=== PATIENT | male | born 1985 | race Caucasian/White ===

== ENCOUNTER 2022-09-19 13:04 | Emergency (ER) | payer SELFPAY ==
--- OUTSIDE RECORDS SUMMARY | 2022-09-19 13:07 | XMS REPORT | Continuity of Care Document ---
:1985 Author Organization [facility] t Address [address] [place] [address] [place] [id number] Care Team Providers Name Role Phone Pcp, Patient Does Not Have A Primary Care Physician [phone] Radha Hinojosa MD Attending Clinician RADHA HINOJOSA Attending Clinician Unavailable Doctor Unassigned, [place] Attending Clinician Unavailable GELY CESPEDES Attending Clinician Unavailable Gely Warren Attending Clinician Unknown, Attending Attending Clinician Unavailable Problems Condition Condition Condition Status Onset Resolution Last Treating Co mments Source Name Details Category Date Date Treatment Clinician Date Adult BMI Adult BMI Diagnosis Active C ommon 34.0-34.9 34.0-34.9 Spir it kg/sq m kg/sq m - [facility] HTN HTN Problem Active Common (hypertens (hypertens Sp malissa ion), ion), - [facility] benign benign [facility] Elevated Elevated Diagnosis Active Com mon LFTs LFTs [facility] Mixed Mixed Diagnosis Active Common hyperlipid hyperlipid Sp malissa emia emia - [facility] Elevated Elevated Diagnosis Active Com mon uric acid uric acid Spir it in blood in blood [facility] Generalize Generalize Problem Active C ommon d anxiety d anxiety Spir it disorder disorder - [facility] Alcohol Alcohol Diagnosis Active Commo n abuse abuse Spirit - [facility] Alcohol Alcohol Diagnosis Active Commo n abuse abuse Spirit counseling counseling - [facility] and and St surveillan surveillan Jennifer kes ce [facility] No known No known Disease Unive rs active active ity of problems problems [facility] Allergies, Adverse Reactions, Alerts Allergy Allergy Status Severity Reaction(s) Onset Inactive Treating Comm ents Source Name Type Date Date Clinician NO KNOWN Drug Active Univers ALLERGIE Class ity of S [facility] Bactrim Adverse Active Info Not Common Reaction Available Spiri t - [facility] Social History Social Habit Start Date Stop Date Quantity Comments Source Exposure to 2022-07-30 2022-08-09 Not sure [facility]-CoV-2 00:00:00 09:31:00 [facility] (event) [place] Alcohol intake 2022-08-09 2022-08-09 Current drinker Unive rsity of 00:00:00 00:00:00 of alcohol [facility] (finding) [place] Tobacco use and 2021-01-10 2021-01-10 Smokeless tobacco Un iversity of exposure 00:00:00 00:00:00 non-user [facility] Sex Assigned At [birth year] Universit y of 00:00:00 00:00:00 [facility] Smoking Status Start Date Stop Date Source Unknown if ever smoked [facility] y [facility] Never smoked tobacco [facility] Medications Ordered Filled Start Stop Current Ordering Indication Dosage Frequency Signature Comments Components Source Medication Medication Date Date Medication? Clinician (SIG) Name Name methylPREDN Yes [id number] 84mg Take 21 Univers ISolone 4-26 9102 tablets by ity of (MEDROL, 00:00: mouth [place] ONEYDA,) 4 mg 00 SEE-INSTRU Med ical tablets CTIONS. Branch follow package directions methylPREDN Yes [id number] 84mg Take 21 Univers ISolone 3-27 9102 tablets by ity of (MEDROL, 00:00: mouth [place] ONEYDA,) 4 mg 00 SEE-INSTRU Med ical tablets CTIONS. Branch follow package directions diclofenac 2022- Yes [id number] 75mg Take 1 Univers 75 mg EC 3-27 04-27 9102 tablet by ity o f tablet 00:00: 04:59 mouth in [place] 00 :00 the Medical morning Branch and 1 tablet in the evening. Take with meals. Do all this for 30 days. diclofenac 2022- Yes [id number] 75mg Take 1 Univers 75 mg EC 08-12 9102 tablet by ity o f tablet 00:00: 04:59 mouth in [place] 00 :00 the Medical morning Branch and 1 tablet in the evening. Take with meals. Do all this for 30 days. methylPREDN 2022- No [id number] 84mg Take 21 Univers ISolone 08-12 9102 tablets by ity o f (MEDROL, 00:00: 00:00 mouth [place] ONE[facility]DA,) 4 mg 00 :00 SEE-INSTRU Med ical tablets CTIONS. Branch follow package directions naproxen Yes [id number] 500mg Take 1 Un mitch 500 mg 8-25 tablet by ity of tablet 00:00: mouth 2 [place] (two) Medical times Branch daily with meals. naproxen Yes [id number] 500mg Take 1 Univers 500 mg 8-25 tablet by ity of tablet 00:00: mouth 2 [place] ([facility]) Medical times Branch daily with meals. naproxen Yes [id number] 500mg Take 1 Univers 500 mg 8-25 tablet by ity of tablet 00:00: mouth 2 [place] (two) Medical times Branch daily with meals. naproxen Yes [id number] 500mg Take 1 Univers 500 mg 8-25 tablet by ity of tablet 00:00: mouth 2 [place] (two) Medical times Branch daily with meals. Sertraline Sertraline Yes Damian 1 tab Common HCl HCl 6-12 [place] [facility] 00:00: - [facility] 00 [facility] Sertraline Sertraline Yes Damian TAKE 1 Common HCl HCl [place] TABLET BY Spirit MOUTH - [facility] EVERY DAY [facility] BusPIRone BusPIRone Yes Damian 1 tablet Common HCl HCl [place] [facility] - [facility] Vital Signs Vital Name Observation Time Observation Value Comments Source Systolic blood 2021-01-10 15:16:00 125 mm[Hg] Univer sity of [facility] Diastolic blood 2021-01-10 15:16:00 82 mm[Hg] [facility] [place] [facility] Heart rate 2021-01-10 15:16:00 102 /min [facility] Body temperature 2021-01-10 15:16:00 36.39 [facility] Respiratory rate 2021-01-10 15:16:00 16 /min [facility] Body height 2021-01-10 15:16:00 180.3 cm [facility] Body weight 2021-01-10 15:16:00 113.535 kg [facility] BMI 2021-01-10 15:16:00 34.91 kg/m2 [facility] Oxygen saturation in 2021-01-10 15:16:00 98 /min [facility] Arterial blood by [facility] Pulse oximetry [place] Procedures Procedure Date / Time Performed Performing Clinician [facility] kiya [facility] PATIENT 2022-08-09 15:32:45 Doctor Unapatricia, Alina [facility] [place] FINANCIAL POLICY Name [facility] Encounters Start End Encounter Admission Attending Care Care Encounter Source Date/Time Date/Time Type Type Clinicians Facility Department ID 2022-09-09 2022-09-09 [facility] [id number] [facility] 00:00:00 [facility]:00:00 [facility] [id number] it [facility] [id number] Stu as POPEYE?BLEA [phone] Ma alta[address] MEDICAL OFFICE BUILDING 2022-08-09 2022-08-09 [facility] [id number] [facility] 09:45:00 09:45:00 RADAH el [facility] 2022-08-09 2022-08-09 Orders Doctor HODGE [id number] Univers 00:00:00 00:00:00 Only Unassigned, CARLOS [id number] ity of [place] [facility] [id number] Stu as [phone] [address] 2022-08-09 2022-08-09 [facility]phone [facility] [id number] Univers 00:00:00 00:00:00 Radha L Asetek [id number] it y of [place] [id number] Stu as POPEYE?BLEA [phone] Me altagonzalo EVANS [address] [place] MEDICAL OFFICE BUILDING 2021-01-10 2021-01-10 Outpatient R RUBINA [facility] [id number] Univers 09:40:00 10:37:33 GELY itdivine o f [facility] 2021-01-10 2021-01-10 Urgent Gely Cespedes [facility] [id number] Univers 09:23:46 10:37:33 Care Unknown, Attending Health [id number] ity of [place] [id number] Stu as Popeye?Blea [phone] Me altagonzalo evans [address] [place] [facility] 2021-01-10 2021-01-10 Letter Doctor AYESHA [id number] Univers 00:00:00 00:00:00 (Out) Unassigned, CARLOS [id number] ity of [place] [facility] [id number] Stu as [phone] [address] 2021-01-10 2021-01-10 Letter Doctor AYESHA [id number] Univers 00:00:00 00:00:00 (Out) Unassigned, CARLOS [id number] ity of [place] [facility] [id number] Stu as [phone] [address] 2018-07-08 2018-07-08 Outpatient [facility] [id number] Common 10:15:00 10:15:[address] [facility] 2018-01-06 2018-01-06 [facility] [id number] Common 08:45:00 08:45:[address] Sp[address] [facility] 2017-12-02 2017-12-02 [facility] [id number] Common 13:30:00 13:30:[address] Sp[address] [facility] 2017-11-20 2017-11-20 [facility] [id number] Common 08:31:00 08:31:[address] [facility] 2017-11-11 2017-11-11 Out[facility] [id number] Common 14:01:00 14:01:[address] Sp[address] [facility] 2017-10-28 2017-10-28 Out[facility] [id number] Common 09:30:00 09:30:[address] [facility] 2017-10-07 2017-10-07 Out[facility] [id number] Common 09:45:00 09:45:[address] Sp[address] [facility] 2005-08-06 2005-08-06 Outpatient [facility] [id number] Univers 00:00:00 12:46:33 0 [facility] Results This patient has no known results.
[2022-09-19 14:04] LABS: Absolute Lymphocytes (CBC) 2.7 K/uL (0.7-4.9); Hematocrit 49.3 % (39.6-49.0); Lymphocytes % 25.6 % (15.3-44.8); MCV 88.7 fL (80-100); MPV 7.7 fL (7.6-11.3); RBC Red Blood Cell Count 5.55 M/uL (4.33-5.43)
[2022-09-19] MEDS ORDERED: HYDROCODONE/APAP 10/325 TAB ONE (14:06)
[2022-09-19 14:24] LABS: Albumin 4.3 g/dL (3.4-5.0); Bilirubin Direct 0.1 mg/dL (0-0.2); Bilirubin Total 0.4 mg/dL (0.2-1.0); Potassium 3.5 mEq/L (3.5-5.1); Protein, Total 8.2 g/dL (6.4-8.2); Troponin High Sensitivity 8.3 pg/mL (<58.9)
--- NOTE | 2022-09-19 14:38 | RAD REPORT ---
EXAM DESCRIPTION: RAD - Chest Pa And Lat (2 Views) - 09/19/2022 2:21 pm CLINICAL HISTORY: palpitations, back pain Chest pain. COMPARISON: <Comparisons> FINDINGS: The lungs are clear. The heart is normal in size. No displaced fractures. IMPRESSION: No acute or concerning finding suspected.
[2022-09-19 14:40] LABS: Specific Gravity 1.024 (1.005-1.030); Transitional Epithelial <5 /HPF (None Seen); Urine Bacteria None Seen /HPF (<20); Urine Bilirubin NEGATIVE (Negative); Urine Blood Negative (Negative); Urine Clarity Clear (Clear); Urine Color Yellow (Yellow); Urine Glucose NEGATIVE (Negative); Urine Mucus Slight /HPF (None Seen); Urine Protein TRACE (Negative); Urine RBC <5 /HPF (None Seen); Urine Urobilinogen Normal (Normal); Urine pH 5.5 (5.0-7.0)
--- NOTE | 2022-09-19 14:53 | RAD REPORT ---
EXAM DESCRIPTION: CT - Angio Aorta For Dissection - 09/19/2022 2:36 pm CLINICAL HISTORY: Chest pain radiating to the back. back pain, HTN, palpitations COMPARISON: No comparisons TECHNIQUE: CT angiography of the aorta was performed with MIPs. All CT scans are performed using dose optimization technique as appropriate and may include automated exposure control or mA/KV adjustment according to patient size. FINDINGS: A left aortic arch is present with normal branching pattern of the great vessels.No acute aortic finding is seen such as aneurysm, penetrating ulcer or dissection. The celiac axis, SMA, JUAN and renal arteries are patent. No evidence of pulmonary embolism. The lungs are clear. The liver demonstrates no focal mass or biliary dilatation.Diffuse fatty liver.The spleen, pancreas, adrenal glands and kidneys are within normal limits for arterial phase imaging. Colonic diverticulosis without diverticulitis.No bowel obstruction, free fluid or abscess.No patholog ic enlarged lymphadenopathy identified. No fracture or worrisome bone lesion seen. IMPRESSION: No acute aortic finding is demonstrated. Advanced fatty liver.
--- NOTE | 2022-09-19 15:21 | EDPHYS ---
Physician Documentation [facility] Name: Thomas Whittaker Age: 37 yrs Sex: Male : 1985 Arrival Date: 09/19/2022 Time: 13:04 Bed 12 Private MD: ED Physician Gibran Figueroa HPI: 09/19 14:19 This 37 yrs old Male presents to ER via Ambulatory with complaints of Palpitations, rn Back Pain. 14:19 The patient presents with pain that is acute, with no known mechanism of injury. The rn symptoms are located in the left mid back and right mid back. Onset: The symptoms/episode began/occurred today. The pain does not radiate. Associated signs and symptoms: Pertinent negatives: abdominal pain, chest pain, fever, hematuria, incontinence, nausea, numbness, tingling, urinary retention, vomiting, weakness. Modifying factors: The patient symptoms are alleviated by nothing, the patient symptoms are aggravated by nothing. Severity of symptoms: At their worst the symptoms were moderate, in the emergency department the symptoms have improved. The patient has not experienced similar symptoms in the past. The patient has not recently seen a physician. Pt reports back pain, mid, non-radiating, no trauma or injury. No urinary problems. No fever/cough/sob/chest pain. No abd pain. . Historical: - Allergies: 13:38 Bactrim; aa5 - Family history:: not pertinent. - Hospitalizations: : No recent hospitalization is reported. ROS: 14:19 Constitutional: Negative for fever, chills, and weight loss, Neck: Negative for injury, rn pain, and swelling, Cardiovascular: Negative for chest pain, palpitations, and edema, Respiratory: Negative for shortness of breath, cough, wheezing, and pleuritic chest pain, Abdomen/GI: Negative for abdominal pain, nausea, vomiting, diarrhea, and constipation, Back: Negative for injury : Negative for injury, bleeding, discharge, and swelling, MS/Extremity: Negative for injury and deformity, Skin: Negative for injury, rash, and discoloration, Neuro: Negative for headache, weakness, numbness, tingling, and seizure. Exam: 14:19 Constitutional: This is a well developed, well nourished patient who is awake, alert, rn appears anxious Cardiovascular: Regular rate and rhythm. No pulse deficits. Respiratory: No increased work of breathing, no retractions or nasal flaring. Abdomen/GI: Soft, non-tender Back: No spinal tenderness. No costovertebral tenderness. Full range of motion. Skin: Warm, dry MS/ Extremity: Pulses equal, no cyanosis Neuro: Awake and alert, GCS 15, oriented to person, place, time, and situation. Motor strength 5/5 in all extremities. Sensory grossly intact. Cerebellar exam normal. Normal gait. Vital Signs: 13:37 BP 173 / 116; Pulse 80; Resp 20 S; Temp 97.1(TE); Pulse Ox 99% on R/A; aa5 14:11 BP 140 / 82; Pulse 87; Resp 20; Pulse Ox 98% on R/A; mb9 15:29 BP 138 / 79; Pulse 88; Resp 20; Pulse Ox 98% on R/A; mb9 MDM: 13:27 Patient medically screened. rn 15:17 Differential diagnosis: arthritis, Hydronephrosis Osteoarthritis Pyelonephritis sprain, rn Ureterolithiasis vertebral fracture. Data reviewed: vital signs, nurses notes, lab test result(s), radiologic studies, CT scan, and as a result, I will discharge patient. Counseling: I had a detailed discussion with the patient and/or guardian regarding: the historical points, exam findings, and any diagnostic results supporting the discharge/admit diagnosis, lab results, radiology results, the need for outpatient follow up, to return to the emergency department if symptoms worsen or persist or if there are any questions or concerns that arise at home. 15:19 Response to treatment: the patient's symptoms have mildly improved after treatment, and rn as a result, I will discharge patient. Special discussion: I discussed with the patient/guardian in detail that at this point there is no indication for admission to the hospital. It is understood, however, that if the symptoms persist or worsen the patient needs to return immediately for re-evaluation. Based on the history and exam findings, there is no indication for further emergent testing or inpatient evaluation. I discussed with the patient/guardian the need to see the senior software systems engineer for further evaluation of the symptoms. I discussed with the patient/guardian the need to see the primary care provider for further evaluation of the symptoms. 15:19 ED course: CT aorta and labs unremarkable, ECG showed intermittent PVCs, will f/u with rn pcp and cardiology. . 09/19 13:32 Order name: Basic Metabolic Panel; Complete Time: 14:40 rn 09/19 13:32 Order name: CBC with Diff; Complete Time: 14:40 rn 09/19 13:32 Order name: LFT's; Complete Time: 14:40 rn 09/19 13:32 Order name: NT PRO-BNP; Complete Time: 14:40 rn 09/19 13:32 Order name: Troponin HS; Complete Time: 14:40 rn 09/19 13:33 Order name: Urinalysis w/ reflexes; Complete Time: 14:40 rn 09/19 13:32 Order name: XRAY Chest Pa And Lat (2 Views); Complete Time: 14:40 rn 09/19 13:34 Order name: CT Aorta for Dissection; Complete Time: 15:07 rn 09/19 13:32 Order name: EKG; Complete Time: 13:32 rn 09/19 13:32 Order name: Cardiac monitoring; Complete Time: 13:59 rn 09/19 13:32 Order name: EKG - Nurse/Tech; Complete Time: 13:45 rn 09/19 13:32 Order name: IV Saline Lock; Complete Time: 13:45 rn 09/19 13:32 Order name: Labs collected and sent; Complete Time: 13:59 rn 09/19 13:32 Order name: O2 Per Protocol; Complete Time: 13:59 rn 09/19 13:32 Order name: O2 Sat Monitoring; Complete Time: 13:59 rn Administered Medications: 14:11 Drug: [place] PO 10 mg-325 mg 1 tabs Route: PO; iw Disposition Summary: 09/19/22 15:21 Discharge Ordered Location: Home rn Problem: new rn Symptoms: have improved rn Condition: Stable rn Diagnosis - Low back pain rn - Palpitations rn Followup: rn - With: Private Physician - When: As needed - Reason: Recheck today's complaints, Re-evaluation by your physician Discharge Instructions: - Discharge Summary Sheet rn - Acute Back Pain, Adult rn - Pain Without a Known Cause rn - Palpitations rn Forms: - Medication Reconciliation Form rn - Thank You Letter rn - Antibiotic infusion rn - Prescription Opioid Use rn - Work release form eb Prescriptions: - Cyclobenzaprine 10 mg Oral Tablet - take 1 tablet by ORAL route every 8 hours As needed; 15 tablet; Refills: 0, rn Product Selection Permitted Signatures: Dispatcher [employer] EDMS Danelle Lomax, Gibran Jackson RN, MD MD rn Calderon, Audri, RN RN aa5 Corrections: (The following items were deleted from the chart) 13:38 13:32 D-DIMER+[id number].LAB.BRZ ordered. EDMS EDMS
--- NOTE | 2022-09-19 15:21 | ER ---
Nurse's Notes [facility] Name: Thomas Whittaker Age: 37 yrs Sex: Male : 1985 Arrival Date: 09/19/2022 Time: 13:04 Bed 12 Private MD: Diagnosis: Low back pain;Palpitations Presentation: 09/19 13:37 Chief complaint: Patient states: back pain and palpitations. Coronavirus screen: At aa5 this time, the client does not indicate any symptoms associated with coronavirus-19. Ebola Screen: Patient denies travel to an Ebola-affected area in the 21 days before illness onset. Initial Sepsis Screen: Does the patient meet any 2 criteria? No. Patient's initial sepsis screen is negative. Does the patient have a suspected source of infection? No. Patient's initial sepsis screen is negative. Risk Assessment: Do you want to hurt yourself or someone else? Patient reports no desire to harm self or others. Onset of symptoms was 2022. 13:37 Acuity: MARCIO 3 aa5 13:37 Method Of Arrival: Ambulatory aa5 Historical: - Allergies: 13:38 Bactrim; aa5 - Family history:: not pertinent. - Hospitalizations: : No recent hospitalization is reported. Screenin:02 [facility] ED Fall Risk Assessment (Adult) History of falling in the last 3 months, mb9 including since admission No falls in past 3 months (0 pts) Confusion or Disorientation No (0 pts) Intoxicated or Sedated No (0 pts) Impaired Gait No (0 pts) Mobility Assist Device Used No (0 pt) Altered Elimination No (0 pt) Score/Fall Risk Level 0 - 2 = Low Risk Oriented to surroundings, Maintained a safe environment, Educated pt \\T\\ family on fall prevention, incl call for assistance when getting out of bed. Abuse screen: Denies threats or abuse. Nutritional screening: No deficits noted. Tuberculosis screening: No symptoms or risk factors identified. Assessment: 14:11 General: Appears in no apparent distress. Behavior is appropriate for age. Pain: mb9 Complains of pain in back Pain does not radiate. Quality of pain is described as "tight" Pain began suddenly. Neuro: Level of Consciousness is awake, alert, obeys commands, Oriented to person, place, time, situation, Appropriate for age. Cardiovascular: Patient's skin is warm and dry. Rhythm is regular. Respiratory: Airway is patent Respiratory effort is even, unlabored, Respiratory pattern is regular, symmetrical. Derm: Skin is pink, warm \\T\\ dry. Musculoskeletal: Range of motion: intact in all extremities. 15:29 Reassessment: No changes from previously documented assessment. Patient and/or family mb9 updated on plan of care and expected duration. Pain level reassessed. Patient is alert, oriented x 3, equal unlabored respirations, skin warm/dry/pink. Vital Signs: 13:37 BP 173 / 116; Pulse 80; Resp 20 S; Temp 97.1(TE); Pulse Ox 99% on R/A; aa5 14:11 BP 140 / 82; Pulse 87; Resp 20; Pulse Ox 98% on R/A; mb9 15:29 BP 138 / 79; Pulse 88; Resp 20; Pulse Ox 98% on R/A; mb9 ED Course: 13:15 Patient arrived in ED. mr 13:27 Gibran Figueroa MD is Attending Physician. rn 13:37 Arm band placed on. aa5 13:38 Triage completed. aa5 13:42 Morelia Rodriguez, RN is Primary Nurse. mb9 13:59 Inserted saline lock: 20 gauge in right antecubital area, using aseptic technique. ah1 Blood collected. 13:59 Urinalysis w/ reflexes Sent. ah1 13:59 Basic Metabolic Panel Sent. ah1 13:59 CBC with Diff Sent. 1 13:59 LFT's Sent. 1 13:59 NT PRO-BNP Sent. 1 13:59 Troponin HS Sent. ah1 14:02 Fall risk band placed. Placed in gown. Bed in low position. Call light in reach. Side mb9 rails up X 1. Client placed on continuous cardiac and pulse oximetry monitoring. NIBP monitoring applied. monitoring coordinator on. 14:02 No provider procedures requiring assistance completed. mb9 14:22 XRAY Chest Pa And Lat (2 Views) In Process Unspecified. EDMS 14:38 CT Aorta for Dissection In Process Unspecified. EDMS 15:29 IV discontinued, intact, bleeding controlled, No redness/swelling at site. Pressure mb9 dressing applied. Administered Medications: 14:11 Drug: [place] PO 10 mg-325 mg 1 tabs Route: PO; iw Medication: 14:02 VIS not applicable for this client. mb9 Outcome: 15:21 Discharge ordered by . rn 15:29 Discharged to home ambulatory. mb9 15:29 Condition: stable 15:29 Discharge instructions given to patient, Instructed on discharge instructions, follow up and referral plans. Demonstrated understanding of instructions, follow-up care, medications, Prescriptions given X 1. 15:29 Patient left the ED. mb9 Signatures: Dispatcher [employer] Morelia Meade Irene, RN Gibran Jackson MD MD rn Calderon, Audri, RN RN aa5 Breneman, Morelia Sandra, RN RN mb9 Fernanda Gutiérrez
[2022-09-19 15:42] VITALS: TEMP 97.1
[2022-09-19 15:46] VITALS: O2SAT 98
[2022-09-19 15:47] VITALS: BP 138/79
--- NOTE | 2022-09-20 05:50 | EKG ---
Test Date: 2022-09-19 Test Time: 13:42:15 Teacher Cclc: EDILSNO MEASUREMENT RESULTS: Intervals: Rate: 81 SD: 134 QRSD: 78 QT: 388 QTc: 450 [place]: P: 41 SD: 134 QRS: 21 T: 95 INTERPRETIVE STATEMENTS: Sinus rhythm T wave abnormality, consider lateral ischemia Abnormal ECG No previous ECG available for comparison Electronically Signed On 09-20-22 05:48:43 CDT by Shai Juan
== END 2022-09-19 15:29 | disposition home or self-care (01) ==
LOC: ER 13:04
DX: M54.50 Low back pain, unspecified (principal); R00.2 Palpitations
CPT/HCPCS: 36415; 71046; 71275; 74175; 80048; 80076; 81001; 83880; 84484; 85025; 93005; 99284; Q9967

== ENCOUNTER 2023-09-30 06:05 | Observation (INO) | payer OTHER, SELFPAY ==
[2023-09-25 10:20] LABS: Absolute Basophils 0.1 K/uL (0-0.5); Absolute Eosinophils 0.2 K/uL (0-0.5); Absolute Monocytes 0.7 K/uL (0.1-1.3); Absolute Neutrophil 3.3 K/uL (1.8-8.0); Basophils % 1.2 % (0-1.3); Eosinophils % 2.6 % (0-4.4); Hematocrit 45.9 % (39.6-49.0); Hemoglobin 15.9 g/dL (13.6-17.9); Lymphocytes % 31.5 % (15.3-44.8); MCHC 34.6 g/dL (32.0-36.0); MCV 92.4 fL (80-100); MPV 8.1 fL (7.6-11.3); Monocytes % 11.4 % (3.3-12.3); Neutrophils % 53.3 % (41.7-73.7); Platelets 258 thou/uL (152-406); RBC Red Blood Cell Count 4.97 M/uL (4.33-5.43); Red Cell Distribution Width 13.9 % (12.1-15.2)
[2023-09-25 10:21] LABS: Specific Gravity 1.023 (1.005-1.030); Urine Bilirubin NEGATIVE (Negative); Urine Blood Negative (Negative); Urine Clarity Clear (Clear); Urine Color Light-Yellow (Yellow); Urine Glucose NEGATIVE (Negative); Urine Ketones NEGATIVE (Negative); Urine Microscopic Reflex YN NO UMIC; Urine Nitrite NEGATIVE (Negative); Urine Protein NEGATIVE (Negative); Urine Urobilinogen Normal (Normal); Urine pH 5.5 (5.0-7.0)
[2023-09-25 10:32] LABS: PT Prothrombin Time 12.3 SECONDS (9.5-12.5); PTT, Activated Partial Thromb 32.9 SECONDS (24.3-36.9); Protime INR 1.12
[2023-09-25 10:38] LABS: Albumin 4.1 g/dL (3.4-5.0); Albumin/Globulin Ratio 1.1 (1.1-1.8); Anion Gap 8.2 mEq/L (5.0-15.0); Bilirubin Total 0.4 mg/dL (0.2-1.0); Globulin 3.6 g/dL (2.3-3.5); Potassium 4.2 mEq/L (3.5-5.1); Protein, Total 7.7 g/dL (6.4-8.2)
--- NOTE | 2023-09-25 10:54 | RAD REPORT ---
EXAM DESCRIPTION: Yenifer Ling (2 Views)09/25/2023 10:15 am CLINICAL HISTORY: Preop for hip surgery COMPARISON: 2022 FINDINGS: The lungs appear clear of acute infiltrate. The heart is normal size IMPRESSION: No acute abnormalities displayed
--- NOTE | 2023-09-25 13:59 | EKG ---
Test Date: 2023-09-25 Test Time: 10:00:30 Pension Administrator: BETO MEASUREMENT RESULTS: Intervals: Rate: 75 RI: 142 QRSD: 78 QT: 384 QTc: 428 [place]: P: 37 RI: 142 QRS: 35 T: 83 INTERPRETIVE STATEMENTS: Normal sinus rhythm Normal ECG Compared to ECG 09/19/2022 13:42:15 T-wave abnormality no longer present Possible ischemia no longer present Electronically Signed On 09-25-23 13:59:03 CDT by Dash Fuentes
[2023-09-30] MEDS ORDERED: BUPIVACAINE 0.75% (PF) 2 ML SP ONE (06:27)
[2023-09-30] MEDS ORDERED: MORPHINE SULFATE/PF 1 MG/ML (10 ML AMP) ONE (06:29)
[2023-09-30] MEDS ORDERED: FENTANYL CITR 100 MCG/2 ML ONE (06:32)
[2023-09-30] MEDS ORDERED: LIDOCAINE 1% MPF 5 ML VIAL ONE ×2 (06:32→06:47)
[2023-09-30] MEDS ORDERED: TRANEXAMIC ACID 1,000 MG/10 ML VIAL IV ONE (06:32)
[2023-09-30] MEDS ORDERED: propofoL 200 MG/20 ML VIAL IV ONE (06:32)
[2023-09-30] MEDS ORDERED: MIDAZOLAM HCL 2 MG/2 ML INJ ONE ×2 (06:32→06:38)
[2023-09-30] MEDS ORDERED: ONDANSETRON 4 MG/2 ML VIAL ONE (06:33)
[2023-09-30] MEDS: GABAPENTIN 100 MG CAP ONE (06:33)
[2023-09-30] MEDS ORDERED: EPINEPHRINE 1 MG/ML VIAL ONE (06:33)
[2023-09-30] MEDS: Oxycodone HCl/Acetaminophen 5/325 MG TAB ONE (06:34)
[2023-09-30] MEDS: CELECOXIB 100 MG CAPSULE ONE (06:34)
[2023-09-30] MEDS: ACETAMINOPHEN 500 MG TAB ONE (06:35)
[2023-09-30] MEDS: Ringers Lactate 1,000 ML IV ONE ×2 (06:45→08:30)
[2023-09-30] MEDS: CEFAZOLIN SODIUM 2 GM/VIAL ONE (07:45)
[2023-09-30] MEDS ORDERED: EPHEDRINE SULF 50 MG/ML VIAL ONE (08:01)
[2023-09-30] MEDS ORDERED: Phenylephrine HCl 10 MG/ML 1 ML VIAL ONE (08:21)
--- NOTE | 2023-09-30 09:07 | RAD REPORT ---
EXAM DESCRIPTION: RAD - Hip Right 1 View - 09/30/2023 8:48 am CLINICAL HISTORY: Right hip surgery FINDINGS: Intraoperative film demonstrates performance of a right hip arthroplasty. Hip and femoral prosthesis is in place
[2023-09-30] MEDS ORDERED: ONDANSETRON 4 MG/2 ML VIAL IV PRN (09:23)
--- NOTE | 2023-09-30 09:23 | P.BOP ---
Preoperative diagnosis: right hip arthritis Postoperative diagnosis: same Primary procedure: right total hip arthoplasty Estimated blood loss: 150 ccs Anesthesia: General Transferred to: Recovery Room Condition: Good
[2023-09-30 09:50] VITALS: O2SAT 100
[2023-09-30] MEDS: HYDROMORPHONE HCL 1 MG/ML INJ ONE ×2 (09:59→10:06)
--- OUTSIDE RECORDS SUMMARY | 2023-09-30 10:02 | XMS REPORT | Continuity of Care Document ---
Author Name Unknown Address [address] [facility] [address] [place] [address] [facility] thconnect Address [address] [facility] [address] [place] [address] Care Team Providers Care Cisco Engineer Name Role Phone Pcp, Patient Does Not Have A Primary Care Physic aneesh Damian Pickens Attending Clinician Unavailable Chapito Attending Clinician Fitz Neville Attending Clinician [phone] Radha Hinojosa MD Attending Clinician [phone] RADHA HINOJOSA Attending Clinician Unavailluis alfredo e Doctor Unassigned, Hawkins Attending Clinician U GELY Kimball Attending Clinician Gely Soto Attending Clinician [phone] Unknown, Attending Attending Clinician Greg Pressley Admitting Clinician Rudy perez Payers Payer Name Policy Type Policy Number Effective Date Expirati on Date Source [employer] - CHOICE (POS II) [id number] 2023 00:00:00 Problems Condition Name Condition Details Condition Category Status Onset Date Resolution Date Last Treatment Date Treating Clinician Comments Source No known active problems No known active problems Disease [facility] [id number] Mixed hyperlipid emia Problem [facility] [id number] Other secondary osteoarthr itis of right hip Problem [facility] [id number] HTN (hypertens ion), benign Problem [facility] [id number] Other secondary osteoarthr itis of left hip Problem [facility] [id number] Adult BMI 34.0-34.9 kg/sq m Problem [facility] [id number] Generalize d anxiety disorder Problem [facility] [id number] Alcohol abuse Problem [facility] [id number] Pain, joint, hip, left Problem [facility] [id number] Pain, joint, hip, right Problem [facility] [id number] Elevated LFTs Problem [facility] [id number] Elevated uric acid in blood Problem [facility] Allergies, Adverse Reactions, Alerts Allergy Name Allergy Type Status Severity Reaction(s) Onset Date Inactive Date Treating Clinician Comments Source sulfamet hoxazole / trimetho prim sulfamet hoxazole / trimetho prim Active Unknown [facility] NO KNOWN ALLERGIE S Drug Class Active [facility] Social History Social Habit Start Date Stop Date Quantity Comments Source Gender identity [facility] Sexual orientation U [facility] History of Tobacco Use [facility] Sex Assigned At [facility] Alcohol intake 2022-09-20 00:00:00 2022-09-20 00:00:00 Current drinker of alcohol (finding) [facility] History of Social function 2022-09-20 00:00:00 2022-09-20 00:00:00 [facility] Exposure to SARS-CoV-2 (event) 2022-07-30 00:00:00 2022-08-09 09:31:00 Not sure [facility] Tobacco use and exposure 2021-01-10 00:00:00 2021-01-10 00:00:00 Smokeless tobacco non-user [facility] Smoking Status Start Date Stop Date Source Unknown if ever smoked [facility] Never Smoker Common [facility] Medications Ordered Medication Name Filled Medication Name Start Date Stop Date Current Medication? Ordering Clinician Indication Dosage Frequency Signature (SIG) Comments Components Source DICLOFENAC 75 mg EC tablet 2022-0 8-10 00:00: 00 Yes [id number] TAKE 1 TABLET BY MOUTH IN THE MORNING AND IN THE EVENING WITH MEALS [facility] methylPREDN ISolone 4 mg tablets 0 7-10 00:00: 00 Yes [id number] 9102 Take by mouth SEE-INSTRU CTIONS. follow package directions [facility] methylPREDN ISolone 4 mg tablets 0 7-07 00:00: 00 11-25 00:00 :00 No [id number] 9102 FOLLOW PACKAGE DIRECTIONS [facility] diclofenac 75 mg EC tablet 0 6-12 00:00: 00 12-26 00:00 :00 No [id number] 75mg Take 1 tablet by mouth in the morning and 1 tablet in the evening. Take with meals. [facility] diclofenac 75 mg EC tablet 0 5-05 00:00: 00 10-28 00:00 :00 No [id number] 75mg Take 1 tablet by mouth in the morning and 1 tablet in the evening. Take with meals. [facility] methylPREDN ISolone (MEDROL, ONEYDA,) 4 mg tablets 0 4-26 00:00: 00 11-22 00:00 :00 No [id number] 9102 84mg Take 21 tablets by mouth SEE-INSTRU CTIONS. follow package directions [facility] methylPREDN ISolone (MEDROL, ONEYDA,) 4 mg tablets 2022-0 3-27 00:00: 00 Yes [id number] 9102 84mg Take 21 tablets by mouth SEE-INSTRU CTIONS. follow package directions [facility] diclofenac 75 mg EC tablet 0 3-27 00:00: 00 09-12 04:59 :00 No [id number] 9102 75mg Take 1 tablet by mouth in the morning and 1 tablet in the evening. Take with meals. Do all this for 30 days. [facility] naproxen 500 mg tablet 8 00:00: 00 Yes [id number] 500mg Take 1 tablet by mouth 2 (two) times daily with meals. [facility] Sertraline HCl Sertraline HCl 10-28 00:00: 00 Yes Damian Pickens 1 tab [facility] Sertraline HCl Sertraline HCl Yes Damian Pickens TAKE 1 TABLET BY MOUTH EVERY DAY [facility] BusPIRone HCl BusPIRone HCl Yes Damian Pickens 1 tablet [facility] Propranolol HCl Propranolol HCl No Propranolo l HCl Vital Signs Vital Name Observation Time Observation Value Comments S ource height 2023-08-01 09:00:00 71 [in_i] Commo n [facility] weight 2023-08-01 09:00:00 238.5 [lb_av] Co mmon [facility] temperature 2023-08-01 09:00:00 97.7 [degF] Com mon [facility] bmi 2023-08-01 09:00:00 33.26 kg/m2 Comm on [facility] blood pressure systolic 2023-08-01 09:00:00 122 mm[Hg] [facility] blood pressure diastolic 2023-08-01 09:00:00 83 mm[Hg] [facility] Systolic blood pressure 2022-08-09 14:56:00 139 mm[Hg] [facility] Diastolic blood pressure 2022-08-09 14:56:00 93 mm[Hg] [facility] Heart rate 2022-08-09 14:56:00 101 /min [facility] Body height 2022-08-09 14:54:00 180.3 cm [facility] Body weight 2022-08-09 14:54:00 123.741 kg [facility] BMI 2022-08-09 14:54:00 38.05 kg/m2 [facility] Systolic blood pressure 2021-01-10 15:16:00 125 mm[Hg] [facility] Diastolic blood pressure 2021-01-10 15:16:00 82 mm[Hg] [facility] Heart rate 2021-01-10 15:16:00 102 /min [facility] Body temperature 2021-01-10 15:16:00 36.39 Puja [facility] Respiratory rate 2021-01-10 15:16:00 16 /min [facility] Body height 2021-01-10 15:16:00 180.3 cm [facility] Body weight 2021-01-10 15:16:00 113.535 kg [facility] BMI 2021-01-10 15:16:00 34.91 kg/m2 [facility] Oxygen saturation in Arterial blood by Pulse oximetry 2021-01-10 15:16:00 98 /min [facility] Procedures Procedure Date / Time Performed Performing Clinicia n Source [facility] PATIENT FINANCIAL POLICY 2022-08-09 15:32:45 Doctor Unassigned, Hawkins [facility] Encounters Start Date/Time End Date/Time Encounter Type Admission Type Attending Clinicians Care Facility Care Department Encounter ID Source 2023-08-07 18:47:00 Outpatient Damian Pickens [facility] ST[facility] [id number] [facility] 2023-08-04 15:23:00 Outpatient Damian Pickens [facility] ST[facility] [id number] [facility] 2023-08-01 00:00:00 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-08-01 00:00:00 (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) New Patient [facility] [id number] [facility] 2023-07-23 00:00:00 2023-07-23 00:00:00 Outpatient KELSEY_Lane Riley AO AO [id number] [facility] 2023-07-22 00:00:00 2023-07-22 00:00:00 Outpatient KELSEY_Lane Riley AO AO [id number] [facility] 2022-12-26 00:00:00 2022-12-26 00:00:00 [facility]ill [facility] hospital[facility]IE [facility] 1.0.114 350.1.13.10 4.2.7.2.686 [id number] [facility] 2022-11-26 00:00:00 2022-11-26 00:00:00 [facility] 1.0.114 350.1.13.10 4.2.7.2.686 [id number] [facility] 2022-11-22 00:00:00 2022-11-22 00:00:00 Refill Carson [facility] [place] 1..114 350.1.13.10 4.2.7.2.686 [id number] [facility] 2022-11-18 00:00:00 2022-11-18 00:00:00 [facility] 1..114 350.1.13.10 4.2.7.2.686 [id number] [facility] 2022-10-23 00:00:00 2022-10-23 00:00:00 Refill Radha Hinojosa [facility] [place]?[facility] 1.84.114 350.1.13.10 4.2.7.2.686 [id number] [facility] 2022-09-09 00:00:00 2022-09-09 00:00:[address] [facility] 1.84.114 350.1.13.10 4.2.7.2.686 [id number] [facility] 2022-08-09 09:45:00 2022-08-09 12:34:18 Outpatient R RADHA HINOJOSA [facility] [id number] [facility] 2022-08-09 09:45:00 2022-08-09 12:34:18 Office Visit Radha Hinojosa [facility] 1.84114 350.1.13.10 4.2.7.2.686 [id number] [facility] 2022-08-09 00:00:00 2022-08-09 00:00:00 Orders Only Doctor Unassigned, Hawkins [facility] 1.114 350.1.13.10 4.2.7.2.686 [id number] [facility] 2022-08-09 00:00:00 2022-08-09 00:00:00 Telephone Radha Hinojosa [facility] 1.84114 350.1.13.10 4.2.7.2.686 [id number] [facility] 2021-01-10 09:40:00 2021-01-10 10:37:33 Outpatient R GELY CESPEDES [facility] [id number] [facility] 2021-01-10 09:23:46 2021-01-10 10:37:33 Urgent Care [facility] Unknown, Attending [facility] 1.114 350.1.13.10 4.2.7.2.686 [id number] [facility] 2021-01-10 00:00:00 2021-01-10 00:00:00 Letter (Out) Doctor Unassigned, Hawkins [facility] 1.114 350.1.13.10 4.2.7.2.686 [id number] [facility] 2021-01-10 00:00:00 2021-01-10 00:00:00 Letter (Out) Doctor Unassigned, Hawkins [facility] 1.2.840.114 350.1.13.10 4.2.7.2.686 [id number] [facility] 2018-07-08 10:15:00 2018-07-08 10:15:[address] [facility] [id number] [facility] 2018-01-06 08:45:00 2018-01-06 08:45:[address] [facility] [id number] [facility] 2017-12-02 13:30:00 2017-12-02 13:30:[address] [facility] [id number] [facility] 2017-11-20 08:31:00 2017-11-20 08:31:[address] [facility] [id number] [facility] 2017-11-11 14:01:00 2017-11-11 14:01:[address] [facility] [id number] [facility] 2017-10-28 09:30:00 2017-10-28 09:30:[address] [facility] [id number] [facility] 2017-10-07 09:45:00 2017-10-07 09:45:[address] [facility] [id number] [facility] 2005-08-06 00:00:00 2005-08-06 12:46:33 [facility] [id number] [facility]
[2023-09-30] MEDS ORDERED: DOCUSATE NA 100 MG CAP PO PRN (10:15)
[2023-09-30 10:17] LABS: Hematocrit 43.2 % (39.6-49.0); Hemoglobin 14.7 g/dL (13.6-17.9)
[2023-09-30] MEDS: HYDROCODONE/APAP 7.5/325 MG TAB PO PRN (13:28)
[2023-09-30] MEDS ORDERED: DIPHENHYDRAMINE 25 MG TAB/CAP PO ONE (16:49)
[2023-09-30 17:19] LABS: Hematocrit 43.8 % (39.6-49.0); Hemoglobin 14.6 g/dL (13.6-17.9)
[2023-09-30] MEDS: DIPHENHYDRAMINE 25 MG TAB/CAP PO ONE (17:49)
[2023-09-30] MEDS: CEFAZOLIN 1 GM in NA CHLORIDE 0.9% 50 ML IVPB SCH (17:51)
[2023-09-30] MEDS: DIPHENHYDRAMINE 25 MG TAB/CAP ONE (17:51)
[2023-09-30 19:00] VITALS: BMI 30.2
[2023-09-30] MEDS ORDERED: DIPHENHYDRAMINE 25 MG TAB/CAP PO PRN (20:00)
--- NOTE | 2023-09-30 20:48 | OP ---
Date of Procedure: 09/30/2023 Surgeon: Rojas Esquivel MD Preoperative Diagnosis: Severe right hip arthritis. Postoperative Diagnosis: Severe right hip arthritis. Procedure: Right total hip arthroplasty using the Hammond system. Estimated Blood Loss: 150 cc. Complications: There were no complications. Indications For Operation: Mr. Whittaker is a 38-year-old male who unfortunately has extremely severe a rthritic changes in both of his hips. This decreased his ability to walk and is causing constant misha n. X-rays demonstrates severe destruction of the hip itself with subluxation and femoral head collap se. Risks, benefits, and alternatives to different methods of treating this were discussed with the patient. He states he understands things as presented and wishes to proceed with total hip arthropla sty. Description Of Procedure: The patient was taken to the operating room. Spinal anesthesia was obtain ed by Anesthesia staff. Following this, he was laid supine. General anesthesia was performed. Afte r this, he was then rolled on left side down with an axillary roll with all his bony prominences bein g checked as he is positioned into lateral positioners. After this, the right lower extremity was th en prepped and draped in usual sterile fashion for the procedure. After this, a standard posterior l ateral incision was taken down carefully through skin and soft tissues. Meticulous hemostasis being maintained using Bovie electrocautery. This led down to the fascia. The fascia was then divided unt il near the tip of the greater trochanter with gluteal tendon being felt to ensure within the correct plane. Following this, the gluteus ever muscles were then spread using finger pressure. The sci atic nerve was palpated and protected as some of the bursa was removed to allow for better visualizat ion. A Charnley was placed and the external rotators and capsule were then taken down carefully and tagged for later repair. The head was then delivered and a slightly shorter than standard neck cut w as then performed. The head was then taken off and sized using ring gauges. This was somewhat diffi cult because of the severe destructive nature of the head. After this, all soft tissue was removed f rom the interior of the acetabulum and retractors were carefully placed as the labrum was then remove d. It was slightly deepened and then it was reamed up to a size 57 where it appeared to have signifi cant amount of cancellous bone posteriorly, anteriorly and superiorly. It did have some bleeding bon e, however, appeared to fit well. After this, a size 68 cup was then placed and appears to have very good fit and appears very solid. After this, attention was then turned to the femur and jukebox checker was used and it was then sequentially broached to a size 6. X-rays were taken at this point, which d emonstrated the cup appears to be in good position and the stem appears to be appropriately sized. A fter this, the liner was then placed. The final stem was placed. It was then trialed. The +4 appea red to give the most stability without being overly long and is stable to full flexion, full adductio n and internal rotation to at least 40 degrees. This was selected as the final implant after further trialing and the final head was then placed and reduced. It was again stable to full flexion, adduc tion, internal rotation to at least 35 to 40 degrees. The wound was copiously irrigated. External r otators and capsule were then repaired back to the femur via bone tunnels. It was again irrigated an d the fascia closed in a watertight fashion using heavy Vicryl sutures. It was again irrigated. Ski n was closed using Vicryl sutures followed by so. The patient was then placed in [facility] ng, awakened, and taken to recovery room. /JASSI Voice ID: [id number] Report ID: [id number]
--- NOTE | 2023-10-01 00:05 | P.CNS ---
Date of Consult: 09/30/23 Reason for Consult: Medical management Chief Complaint: Right total hip arthroplasty History of Present Illness: Patient is a 38-year-old gentleman came to the hospital for right total hip arthroplasty. Patient is developed arthritis at a very young age. He required bilateral hip replacement. They decided to start with the right hip in 3 months will get the left hip performed. Concern was that patient had developed avascular necrosis after an injury. Patient otherwise with no significant medical problems although he takes propranolol for occasional tachyarrhythmia/hypertension. Allergies sulfamethoxazole [From Bactrim] Allergy (Verified 09/30/23 07:24) Itching/Hives/Rash trimethoprim [From Bactrim] Allergy (Verified 09/30/23 07:24) Itching/Hives/Rash Home Medications: Meloxicam [Mobic*] 7.5 mg PO DAILY 09/25/23 Propranolol [Inderal LA*] 80 mg PO DAILY 09/25/23 Apixaban [Eliquis] 2.5 mg PO BID #30 tablet 10/01/23 Hydrocodone 10/APAP 325 [Switzer 10/325] 1 tab PO Q6H PRN #30 tab 10/01/23 - Past Medical/Surgical History Diabetic: No -: HTN -: anxiety -: left shoulder - Family History Mother Medical History: Hypertension - Social History Smoking Status: Former smoker Alcohol use: Yes CD- Drugs: No Caffeine use: No Place of Residence: Home Review of Systems 10-point ROS is otherwise unremarkable Physical Examination Temp Pulse Resp BP Pulse Ox 97.2 F 78 18 122/73 96 09/30/23 12:00 09/30/23 12:00 09/30/23 14:28 09/30/23 12:00 09/30/23 14:28 General: Alert, In no apparent distress, Oriented x3 HEENT: Atraumatic, PERRLA, Mucous membr. moist/pink, EOMI, Sclerae nonicteric Neck: Supple, 2+ carotid pulse no bruit, No LAD, Without JVD or thyroid abnormality Respiratory: Clear to auscultation bilaterally, Normal air movement Cardiovascular: Regular rate/rhythm, Normal S1 S2, No murmurs Gastrointestinal: Normal bowel sounds, Soft and benign, Non-distended, No tenderness Musculoskeletal: No clubbing, No swelling, No tenderness Integumentary: No rashes Neurological: Normal gait, Normal speech, Normal tone, Cranial nerves 3-12 intact, Normal affect Lymphatics: No axilla or inguinal lymphadenopathy Laboratory Data (last 24 hrs) 09/30/23 10:08 Hgb 14.7 Hct 43.2 - Problems (1) S/P total right hip arthroplasty Current Visit: Yes Status: Acute (2) Avascular necrosis Current Visit: Yes Status: Acute (3) HTN (hypertension) Current Visit: Yes Status: Acute Conclusions/ Impression: Plan: 1. Continue with physical therapy 2. Continue with pain control 3. DVT prophylaxis 4. Outpatient orthopedic follow-up 5. Resume propranolol for hypertension 6. GI DVT prophylaxis Critical Care: No Time Spent Managing Pts care (In Minutes): 40
[2023-10-01] MEDS: DIPHENHYDRAMINE 25 MG TAB/CAP PO PRN (00:40)
[2023-10-01 06:34] LABS: Hematocrit 39.7 % (39.6-49.0); Hemoglobin 13.5 g/dL (13.6-17.9)
--- NOTE | 2023-10-01 07:42 | P.PN ---
Subjective Date of Service: 10/01/23 s/p right total hip arthoplasty Pain control with as needed analgesics, following physical therapy Review of Systems per hpi Physical Examination - Vital Signs Temperature: 99.1 F Blood Pressure: 149/80 Pulse: 78 Respirations: 16 Pulse Ox (%): 95 - Physical Exam General: Alert, In no apparent distress, Oriented x3 HEENT: Atraumatic, Normocephalic Neck: Supple, JVD not distended Respiratory: Clear to auscultation bilaterally, Normal air movement Cardiovascular: No edema, Regular rate/rhythm Gastrointestinal: Normal bowel sounds, Soft and benign Musculoskeletal: No swelling, No contractures, Other (Status post right total hip arthroplasty, surgical dressing dry) Integumentary: No rashes, No breakdown, Other Neurological: Normal speech, Normal strength at 5/5 x4 extr - Studies Laboratory Data (last 24 hrs) 10/01/23 09/30/23 09/30/23 06:15 16:56 10:08 Hgb 13.5 L 14.6 14.7 Hct 39.7 43.8 43.2 Assessment And Plan - Plan Assessment plan Right hip arthritis Right total hip arthroplasty Dr. Esquivel 09/29 PT eval, fall precautions, Trend H&H As needed analgesics, stool softener Full code DVT Lovenox Diet regular diet Disposition outpatient physical therapy Discharge Plan: Home - Code Status/Comfort Care Code Status: Full Code Critical Care: No Time Spent Managing PTS Care (In Minutes): 35
[2023-10-01] MEDS: ENOXAPARIN 40 MG/0.4 ML SQ SCH (09:15)
[2023-10-01] MEDS: PROPRANOLOL HCL 60 MG SA CAP PO SCH (11:11)
[2023-10-01 13:11] VITALS: BP 153/73; TEMP 97.2
--- NOTE | 2023-10-01 19:08 | P.DS ---
Admission Date: 09/30/23 Discharge Date: 10/01/23 Disposition: DC HOME/HOME HEALTH CARE Discharge Condition: GOOD Reason for Admission: Right total hip arthroplasty Brief History of Present Illness: 38-year-old male with a history of arthritis, is status post right total hip arthroplasty by Dr. Esquivel on 09/29. He is ambulating with physical therapy, plan to discharge home, with home health, transition to outpatient rehab, rolli ng walker ordered for patient, outpatient physical therapy ordered for patient, discharged home with as needed analgesics, Xarelto for DVT prophylaxis. Condition improved with Right total hip arthroplasty Dr. Esquivel 09/29 Patient tolerating diet, stable for discharge to home with follow-up appointment with primary care physician. Follow-up with Dr. Esquivel after after discharge - Physical Exam General: Alert, In no apparent distress, Oriented x3 HEENT: Atraumatic, Normocephalic Neck: Supple, JVD not distended Respiratory: Clear to auscultation bilaterally, Normal air movement Cardiovascular: No edema, Regular rate/rhythm Gastrointestinal: Normal bowel sounds, Soft and benign Musculoskeletal: No swelling, No contractures, Other (Status post right total hip arthroplasty, surgical dressing dry) Integumentary: No rashes, No breakdown, Other Neurological: Normal speech, Normal strength at 5/5 x4 extr Hospital Course: 38-year-old male with a history of arthritis, is status post right total hip arthroplasty by Dr. Esquivel on 09/29. He is ambulating with physical therapy, plan to discharge home, with home health, transition to outpatient rehab, rolling walker ordered for patient, outpatient physical therapy ordered for patient, discharged home with as needed analgesics, Xarelto for DVT prophylaxis. Condition improved with Right total hip arthroplasty Dr. Esquivel 09/29 Patient tolerating diet, stable for discharge to home with follow-up appointment with primary care physician. Follow-up with Dr. Esquivel after discharge, call office for appointment PROBLEM: Right hip arthritis Right total hip arthroplasty Dr. Esquivel 09/29 Rad/Lab/Micro: H&H stable Discharge home with as needed analgesics, instructed no driving while on as needed analgesics, Discharged home with DVT prophylaxis Xarelto for orthopedic Discharge home with outpatient physical therapy with Ruben and educated on proper Follow-up with Dr. Esquivel after discharge, call office for appointment Continue home medicines as previously prescribed GOAL: Clear understanding of disease process INSTRUCTIONS: Physician Discharge Instructions: -Follow-up with PCP in 1 to 2 weeks -Please call Dr. Villanueva at [phone] if any questions regarding hospital stay -Please call nursing station at [phone] if any nursing or medication questions -Return to the emergency room if symptoms worsen Diet: ADA, low sodium Activity: Fall precautions Vital Signs/Physical Exam: Temp Pulse Resp BP Pulse Ox 97.2 F 93 H 14 153/73 H 98 10/01/23 12:00 10/01/23 12:00 10/01/23 12:00 10/01/23 12:00 10/01/23 12:00 Laboratory Data at Discharge: WBC 6.20 thou/uL (4.3-10.9) 09/25/23 09:45 Hgb 13.5 g/dL (13.6-17.9) L 10/01/23 06:15 Hct 39.7 % (39.6-49.0) 10/01/23 06:15 Plt Count 258 thou/uL (152-406) 09/25/23 09:45 PT 12.3 SECONDS (9.5-12.5) 09/25/23 09:45 INR 1.12 09/25/23 09:45 APTT 32.9 SECONDS (24.3-36.9) 09/25/23 09:45 Sodium 135 mEq/L (136-145) L 09/25/23 09:45 Potassium 4.2 mEq/L (3.5-5.1) 09/25/23 09:45 BUN 15 mg/dL (7-18) 09/25/23 09:45 Creatinine 0.91 mg/dL (0.70-1.30) 09/25/23 09:45 Glucose 99 mg/dL (74-106) 09/25/23 09:45 Total Bilirubin 0.4 mg/dL (0.2-1.0) 09/25/23 09:45 AST 34 U/L (15-37) 09/25/23 09:45 ALT 67 U/L (16-61) H 09/25/23 09:45 Alkaline Phosphatase 87 U/L (45-117) 09/25/23 09:45 Home Medications: Meloxicam [Mobic*] 7.5 mg PO DAILY 09/25/23 Propranolol [Inderal LA*] 80 mg PO DAILY 09/25/23 Hydrocodone 10/APAP 325 [[place] 10/325] 1 tab PO Q6H PRN #30 tab 10/01/23 Rivaroxaban [Xarelto] 10 mg PO DAILY #20 tab 10/01/23 New Medications: Hydrocodone 10/APAP 325 [[place] 10/325] 1 tab PO Q6H PRN #30 tab PRN Reason: Pain Rivaroxaban [Xarelto] 10 mg PO DAILY #20 tab Physician Discharge Instructions: -DC IV and DC home -Follow-up with PCP in 1 to 2 weeks -Follow-up with Orthopedics, Dr. Esquivel in 1 to 2 weeks -Please call Dr. Villanueva at [phone] if any questions regarding hospital stay -Please call nursing station at [phone] if any nursing or medication questions -Return to the emergency room if symptoms worsen Preoperative referral by Dr. Esquivel's office for home health/home PT services: [facility] [phone] fax [phone] Diet: Regular Activity: Fall precautions Followup: Rojas Esquivel MD [ACTIVE - CAN ADMIT] - 1-2 Weeks Mikael Oconnell FNP [Primary Care Provider] - 1-2 Weeks Time spent managing pt's care (in minutes): 55
== END 2023-10-01 13:47 | disposition home health service (06) ==
LOC: OR 06:05 → 2ND 09:23
PROVIDERS: ADMIT Orthopaedic Surgery; ATTEND Orthopaedic Surgery
PROC: 0SR90JA Replacement of Right Hip Joint with Synthetic Substitute, Uncemented, Open Approach (ICD-10-PCS; principal; 2023-09-30 07:00)
DX: M16.11 Unilateral primary osteoarthritis, right hip (principal); I10 Essential (primary) hypertension; F41.9 Anxiety disorder, unspecified; Z88.1 Allergy status to other antibiotic agents
CPT/HCPCS: 93005; 85025; 36415 ×2; 85610; 88305; 88311; 85730; 85018 ×3; 85014 ×3; 81003; 80053; 71046; 73501; 97116 ×4; 97161; 97530; 27130; J2704; J2001 ×2; J2371; J1650; J2250 ×2; J3010; J0171; J1170; J2405; J7120 ×2; J0690 ×3; G0378; G0379

== ENCOUNTER 2023-12-30 06:01 | Observation (INO) | payer OTHER ==
[2023-12-25 09:40] LABS: Specific Gravity 1.016 (1.005-1.030); Urine Bilirubin NEGATIVE (Negative); Urine Blood Negative (Negative); Urine Clarity Clear (Clear); Urine Color Light-Yellow (Yellow); Urine Glucose NEGATIVE (Negative); Urine Ketones NEGATIVE (Negative); Urine Microscopic Reflex YN NO UMIC; Urine Nitrite NEGATIVE (Negative); Urine Protein NEGATIVE (Negative); Urine Urobilinogen Normal (Normal)
[2023-12-25 09:43] LABS: Absolute Basophils 0.1 K/uL (0-0.5); Absolute Eosinophils 0.1 K/uL (0-0.5); Absolute Lymphocytes (CBC) 1.7 K/uL (0.7-4.9); Absolute Monocytes 0.4 K/uL (0.1-1.3); Absolute Neutrophil 1.8 K/uL (1.8-8.0); Basophils % 1.4 % (0-1.3); Eosinophils % 2.9 % (0-4.4); Hematocrit 47.1 % (39.6-49.0); Hemoglobin 15.8 g/dL (13.6-17.9); Lymphocytes % 40.6 % (15.3-44.8); MCH 31.7 pg (27.0-35.0); MCHC 33.5 g/dL (32.0-36.0); MCV 94.7 fL (80-100); MPV 7.9 fL (7.6-11.3); Monocytes % 10.1 % (3.3-12.3); Nucleated Red Blood Cells % 0.1 % (0-0); Platelets 220 thou/uL (152-406); RBC Red Blood Cell Count 4.98 M/uL (4.33-5.43)
[2023-12-25 09:53] LABS: Anion Gap 11.4 mEq/L (5.0-15.0); Potassium 4.4 mEq/L (3.5-5.1)
[2023-12-25 09:55] LABS: PT Prothrombin Time 11.9 SECONDS (9.4-12.5); PTT, Activated Partial Thromb 30.2 SECONDS (24.3-36.9); Protime INR 1.06
[2023-12-30] MEDS: MORPHINE SULFATE/PF 1 MG/ML (10 ML AMP) ONE (06:18)
[2023-12-30] MEDS: BUPIVACAINE 0.75% (PF) 2 ML SP ONE (06:18)
[2023-12-30] MEDS: DEXMEDETOMIDINE HCL 200 MCG/2 ML VIAL ONE (06:19)
[2023-12-30] MEDS: Oxycodone HCl/Acetaminophen 5/325 MG TAB ONE (06:20)
[2023-12-30] MEDS: CELECOXIB 100 MG CAPSULE ONE (06:20)
[2023-12-30] MEDS: MAGNESIUM SULFATE 1 gm IVPB 1 GM/100 ML BAG IV ONE (06:20)
[2023-12-30] MEDS: ACETAMINOPHEN 500 MG TAB ONE (06:20)
[2023-12-30] MEDS: GABAPENTIN 100 MG CAP ONE (06:20)
[2023-12-30] MEDS: ROPIVACAINE HCL 20 ML ONE (06:20)
[2023-12-30] MEDS ORDERED: LIDOCAINE 1% MPF 5 ML VIAL ONE (06:25)
[2023-12-30] MEDS ORDERED: propofoL 200 MG/20 ML VIAL IV ONE (06:25)
[2023-12-30] MEDS ORDERED: ROCURONIUM 50 MG/5 ML VIAL IV ONE (06:25)
[2023-12-30] MEDS ORDERED: EPINEPHRINE 1 MG/ML VIAL ONE (06:25)
[2023-12-30] MEDS ORDERED: FENTANYL CITR 100 MCG/2 ML ONE (06:25)
[2023-12-30] MEDS: TRANEXAMIC ACID 1,000 MG/10 ML VIAL IV ONE (06:25)
[2023-12-30] MEDS ORDERED: LIDOCAINE 2% MPF 5 ML VIAL ONE ×3 (06:25→07:50)
[2023-12-30] MEDS ORDERED: MIDAZOLAM HCL 2 MG/2 ML INJ ONE ×2 (06:25→07:10)
[2023-12-30] MEDS: CEFAZOLIN SODIUM 2 GM/VIAL ONE (07:07)
[2023-12-30] MEDS: Ringers Lactate 1,000 ML IV ONE ×3 (07:07→08:15)
[2023-12-30] MEDS ORDERED: EPHEDRINE SULF 50 MG/ML VIAL ONE ×2 (07:43→08:23)
[2023-12-30] MEDS ORDERED: KETAMINE HCL IN 0.9 % NACL 50 MG/5 ML SYRINGE IV ONE (07:49)
--- NOTE | 2023-12-30 08:50 | RAD REPORT ---
EXAM DESCRIPTION: RAD - Hip Left 1 View - 12/30/2023 8:37 am CLINICAL HISTORY: TOTAL HOP COMPARISON: No comparisons FINDINGS/IMPRESSION: Single view demonstrating an intraoperative left hip arthroplasty. No unexpecte d findings.
[2023-12-30] MEDS ORDERED: DOCUSATE NA 100 MG CAP PO PRN (09:01)
[2023-12-30] MEDS ORDERED: ONDANSETRON 4 MG/2 ML VIAL IV PRN (09:01)
--- NOTE | 2023-12-30 09:01 | P.BOP ---
Preoperative diagnosis: left hip arthritis Postoperative diagnosis: same Primary procedure: left total hip arthroplasty Estimated blood loss: 100 ccs Anesthesia: General Complications: None Transferred to: Recovery Room Condition: Good
[2023-12-30 10:17] LABS: Hematocrit 42.6 % (39.6-49.0); Hemoglobin 14.2 g/dL (13.6-17.9)
[2023-12-30] MEDS ORDERED: METOCLOPRAMIDE 10 MG/2mL INJ IV PRN (10:23)
[2023-12-30] MEDS ORDERED: DIPHENHYDRAMINE 50 MG/ML VIAL IV PRN (10:23)
--- OUTSIDE RECORDS SUMMARY | 2023-12-30 10:25 | XMS REPORT | Continuity of Care Document ---
Author Name Unknown Address [address] [place] [address] [facility] Address [address] [facility] [place] [address] Care Team Providers Care Patient Safety Sitter Name Role Phone Pcp, Patient Does Not Have A Primary Care Physic aneesh Damian Pickens Attending Clinician Unavailable Chapito Attending Clinician UnavailFitz Palacios Attending Clinician [phone] Radha Hinojosa MD Attending Clinician [phone] RADHA HINOJOSA Attending Clinician Unavailluis alfredo e Doctor Unassigned, [place] Attending Clinician U navailGELY Limon Attending Clinician UnavailGely Lutz Attending Clinician [phone] Unknown, Attending Attending Clinician Greg Pressley Admitting Clinician Rudy perez Payers Payer Name Policy Type Policy Number Effective Date Expirati on Date Source [employer] 53 [id number] 2023 00:00:00 [facility] [employer] - CHOICE (POS II) [id number] 2023 00:00:00 Problems Condition Name Condition Details Condition Category Status Onset Date Resolution Date Last Treatment Date Treating Clinician Comments Source [id number] Mixed hyperlipid emia Problem [facility] [id number] Other secondary osteoarthr itis of right hip Problem [facility] [id number] HTN (hypertens ion), benign Problem [facility] [id number] [id number] Other secondary osteoarthr itis of left hip Problem [facility] [id number] Adult BMI 34.0-34.9 kg/sq m Problem [facility] [id number] Generalize d anxiety disorder Problem [facility] [id number] Alcohol abuse Problem [facility] [id number] 88712 Pain, joint, hip, left Problem [facility] [id number] Pain, joint, hip, right Problem [facility] [id number] Arthritis of right hip Problem [facility] [id number] Presence of right artificial hip joint Problem [facility] [id number] Aftercare following joint replacemen t surgery Problem [facility] [id number] 06 Status post total replacemen t of right hip Problem [facility] [id number] Arthritis of left hip Problem [facility] Localized, primary osteoarthr itis of the pelvic region and thigh Primary osteoarthr itis of left hip Problem [facility] History of prosthetic arthroplas ty of left hip Status post left hip replacemen t Problem [facility] [id number] Pelvic pain Problem [facility] [id number] Elevated LFTs Problem [facility] [id number] Elevated uric acid in blood Problem [facility] No known active problems No known active problems Disease [facility] Allergies, Adverse Reactions, Alerts Allergy Name Allergy Type Status Severity Reaction(s) Onset Date Inactive Date Treating Clinician Comments Source sulfamet hoxazole / trimetho prim sulfamet hoxazole / trimetho prim Active Unknown [facility] NO KNOWN ALLERGIE S Drug Class Active [facility] Social History Social Habit Start Date Stop Date Quantity Comments Source History of Tobacco Use [facility] Sex Assigned At [facility] Gender identity [facility] Sexual orientation [facility] Alcohol intake 2022-09-20 00:00:00 2022-09-20 00:00:00 Current drinker of alcohol (finding) [facility] History of Social function 2022-09-20 00:00:00 2022-09-20 00:00:00 [facility] Exposure to SARS-CoV-2 (event) 2022-07-30 00:00:00 2022-08-09 09:31:[address] [facility] Tobacco use and exposure 2021-01-10 00:00:00 2021-01-10 00:00:00 Smokeless tobacco non-user [facility] Smoking Status Start Date Stop Date Source Unknown if ever smoked [facility] Never Smoker [facility] Medications Ordered Medication Name Filled Medication Name Start Date Stop Date Current Medication? Ordering Clinician Indication Dosage Frequency Signature (SIG) Comments Components Source HYDROcodone -Acetaminop hen 7.5-325 MG HYDROcodone -Acetaminop hen 7.5-325 MG 12-25 00:00: 00 No 1{table t_as_ne eded} QID HYDROcodon e-Acetamin ophen 7.5-325 MG DICLOFENAC 75 mg EC tablet 12-26 00:00: 00 Yes [id number] TAKE 1 TABLET BY MOUTH IN THE MORNING AND IN THE EVENING WITH MEALS [facility] methylPREDN ISolone 4 mg tablets 11-25 00:00: 00 Yes [id number] 9102 Take by mouth SEE-INSTRU CTIONS. follow package directions [facility] methylPREDN ISolone 4 mg tablets 11-22 00:00: 00 11-25 00:00 :00 No [id number] 9102 FOLLOW PACKAGE DIRECTIONS [facility] diclofenac 75 mg EC tablet 6-12 00:00: 00 12-26 00:00 :00 No [id number] 75mg Take 1 tablet by mouth in the morning and 1 tablet in the evening. Take with meals. [facility] diclofenac 75 mg EC tablet 5-05 00:00: 00 10-28 00:00 :00 No [id number] 75mg Take 1 tablet by mouth in the morning and 1 tablet in the evening. Take with meals. [facility] methylPREDN ISolone (MEDROL, ONEYDA,) 4 mg tablets 4 00:00: 00 11-22 00:00 :00 No [id number] 9102 84mg Take 21 tablets by mouth SEE-INSTRU CTIONS. follow package directions [facility] methylPREDN ISolone (MEDROL, ONEYDA,) 4 mg tablets 3 00:00: 00 Yes [id number] 9102 84mg Take 21 tablets by mouth SEE-INSTRU CTIONS. follow package directions [facility] diclofenac 75 mg EC tablet 08-12 00:00: 00 09-12 04:59 :00 No [id number] 9102 75mg Take 1 tablet by mouth in the morning and 1 tablet in the evening. Take with meals. Do all this for 30 days. [facility] naproxen 500 mg tablet 8 00:00: 00 Yes [id number] 500mg Take 1 tablet by mouth 2 (two) times daily with meals. [facility] Propranolol HCl 80 MG Propranolol HCl 80 MG No 1{table t} QD Propranolo l HCl 80 MG Vital Signs Vital Name Observation Time Observation Value Comments S ource height 2023-12-25 08:00:00 71 [in_i] Commo n [facility] weight 2023-12-25 08:00:00 238 [lb_av] Comm on [facility] temperature 2023-12-25 08:00:00 97.2 [degF] Com mon [facility] bmi 2023-12-25 08:00:00 33.19 kg/m2 Comm on [facility] blood pressure systolic 2023-12-25 08:00:00 126 mm[Hg] [facility] blood pressure diastolic 2023-12-25 08:00:00 76 mm[Hg] [facility] height 2023-11-10 13:00:00 71 [in_i] Commo n [facility] weight 2023-11-10 13:00:00 238 [lb_av] Comm on [facility] temperature 2023-11-10 13:00:00 98.6 [degF] Com mon [facility] bmi 2023-11-10 13:00:00 33.19 kg/m2 Comm on [facility] blood pressure systolic 2023-11-10 13:00:00 127 mm[Hg] [facility] blood pressure diastolic 2023-11-10 13:00:00 74 mm[Hg] [facility] height 2023-10-15 09:00:00 71 [in_i] Commo n [facility] weight 2023-10-15 09:00:00 238.4 [lb_av] Co on [facility] temperature 2023-10-15 09:00:00 98.7 [degF] Com [facility] bmi 2023-10-15 09:00:00 33.25 kg/m2 Comm on [facility] blood pressure systolic 2023-10-15 09:00:00 124 mm[Hg] Common [facility] blood pressure diastolic 2023-10-15 09:00:00 86 mm[Hg] Common [facility] height 2023-09-25 08:00:00 71 [in_i] Commo n [facility] weight 2023-09-25 08:00:00 238.5 [lb_av] Co [facility] temperature 2023-09-25 08:00:00 97.7 [degF] Com [facility] bmi 2023-09-25 08:00:00 33.26 kg/m2 Comm on [facility] blood pressure systolic 2023-09-25 08:00:00 122 mm[Hg] Common [facility] blood pressure diastolic 2023-09-25 08:00:00 83 mm[Hg] Common [facility] height 2023-08-01 09:00:00 71 [in_i] Commo n [facility] weight 2023-08-01 09:00:00 238.5 [lb_av] Co mmon [facility] temperature 2023-08-01 09:00:00 97.7 [degF] Com mon [facility] bmi 2023-08-01 09:00:00 33.26 kg/m2 Comm on [facility] blood pressure systolic 2023-08-01 09:00:00 122 mm[Hg] [facility] blood pressure diastolic 2023-08-01 09:00:00 83 mm[Hg] [facility] Systolic blood pressure 2022-08-09 14:56:00 139 mm[Hg] [facility] Diastolic blood pressure 2022-08-09 14:56:00 93 mm[Hg] [facility] Heart rate 2022-08-09 14:56:00 101 /min [facility] Body height 2022-08-09 14:54:00 180.3 cm [facility] Body weight 2022-08-09 14:54:00 123.741 kg [facility] BMI 2022-08-09 14:54:00 38.05 kg/m2 [facility] Systolic blood pressure 2021-01-10 15:16:00 125 mm[Hg] [facility] Diastolic blood pressure 2021-01-10 15:16:00 82 mm[Hg] [facility] Heart rate 2021-01-10 15:16:00 102 /min [facility] Body temperature 2021-01-10 15:16:[address] [facility] Respiratory rate 2021-01-10 15:16:00 16 /min [facility] Body height 2021-01-10 15:16:00 180.3 cm [facility] Body weight 2021-01-10 15:16:00 113.535 kg [facility] BMI 2021-01-10 15:16:00 34.91 kg/m2 [facility] Oxygen saturation in Arterial blood by Pulse oximetry 2021-01-10 15:16:00 98 /min [place] [facility] Procedures Procedure Date / Time Performed Performing Clinicia n Source [facility] PATIENT FINANCIAL POLICY 2022-08-09 15:32:45 Doctor Unassigned, [place] [facility] Encounters Start Date/Time End Date/Time Encounter Type Admission Type Attending Clinicians Care Facility Care Department Encounter ID Source 2023-11-25 08:28:00 Outpatient CelioManoharh [facility] [id number] [facility] 2023-08-07 18:47:00 Outpatient Celio Damian [facility] [id number] [facility] 2023-08-04 15:23:00 Outpatient Celio Damian [facility] [id number] [facility] 2023-12-25 00:00:00 2023-12-25 00:00:00 (F/U) Follow Up Visit [facility] [id number] [facility] 2023-12-01 00:00:00 2023-12-01 00:00:00 (TEL) [facility] [id number] [facility] 2023-11-10 00:00:00 2023-11-10 00:00:00 (PO) Post Op [facility]ML[facility] [id number] [facility] 2023-10-15 00:00:00 2023-10-15 00:00:00 (PO) Post Op [facility] [id number] [facility] 2023-09-29 00:00:00 2023-09-29 00:00:00 (TEL) [facility] [id number] [facility] 2023-09-25 00:00:00 2023-09-25 00:00:00 (F/U) [facility] [id number] 2023-08-01 00:00:00 2023-08-01 00:00:00 (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) New Patient [facility] [id number] [facility] 2023-07-23 00:00:00 2023-07-23 00:00:00 Outpatient KELSEY_Lane Riley [facility] [id number] [facility] 2023-07-22 00:00:00 2023-07-22 00:00:00 Outpatient Yoseph Riley [facility] [id number] [facility] 2022-12-26 00:00:00 2022-12-26 00:00:00 Refill Carson [facility] [place] [id number] 350.1.13.10 4.2.7.2.686 [id number] [facility] 2022-11-26 00:00:00 2022-11-26 00:00:00 Refill Carson [facility] [place] 1.2.840.114 350.1.13.10 4.2.7.2.686 [id number] [facility] 2022-11-22 00:00:00 2022-11-22 00:00:00 Refill Carson [facility] [place]?[facility] 1.2.840.114 350.1.13.10 4.2.7.2.686 [id number] [facility] 2022-11-18 00:00:00 2022-11-18 00:00:00 Refill Carson [facility] [place] 1.0.114 350.1.13.10 4.2.7.2.686 [id number] [facility] 2022-10-23 00:00:00 2022-10-23 00:00:00 Refill Radha Hinojosa [facility] [place] 1..114 350.1.13.10 4.2.7.2.686 [id number] [facility] 2022-09-09 00:00:00 2022-09-09 00:00:00 Refill Radha Hinojosa [facility] [place] 1.114 350.1.13.10 4.2.7.2.686 [id number] [facility] 2022-08-09 09:45:00 2022-08-09 12:34:18 Outpatient R RADHA HINOJOSA [facility] [id number] [facility] 2022-08-09 09:45:00 2022-08-09 12:34:18 [facility] 1.114 350.1.13.10 4.2.7.2.686 [id number] [facility] 2022-08-09 00:00:00 2022-08-09 00:00:00 Orders Only Doctor Unassigned, [place] [facility] 1.0.114 350.1.13.10 4.2.7.2.686 [id number] [facility] 2022-08-09 00:00:00 2022-08-09 00:00:00 Telephone Radha Hinojosa [facility] [place]?[facility] 1.114 350.1.13.10 4.2.7.2.686 [id number] [facility] 2021-01-10 09:40:00 2021-01-10 10:37:33 Outpatient R GELY CESPEDES [facility] [id number] [facility] 2021-01-10 09:23:46 2021-01-10 10:37:33 Urgent Care Gely Cespedes Unknown, [facility] 1.2.840.114 350.1.13.10 4.2.7.2.686 [id number] [facility] 2021-01-10 00:00:00 2021-01-10 00:00:00 Letter (Out) Doctor Unassigned, [place] [address]840.114 350.1.13.10 4.2.7.2.686 [id number] [facility] 2021-01-10 00:00:00 2021-01-10 00:00:00 Letter (Out) Doctor Unassigned, [place] [address]840.114 350.1.13.10 4.2.7.2.686 [id number] [facility] 2018-07-08 10:15:00 2018-07-08 10:15:00 [facility] Medicine [id number] [facility] 2018-01-06 08:45:00 2018-01-06 08:45:00 Outpatient [facility] [id number] [facility] 2017-12-02 13:30:00 2017-12-02 13:30:00 Outpatient [facility] [id number] [facility] 2017-11-20 08:31:00 2017-11-20 08:31:00 Outpatient [facility] [id number] [facility] 2017-11-11 14:01:00 2017-11-11 14:01:00 [facility] [id number] [facility] 2017-10-28 09:30:00 2017-10-28 09:30:00 [facility] [id number] [facility] 2017-10-07 09:45:00 2017-10-07 09:45:00 Outpatient [facility] [id number] [facility] 2005-08-06 00:00:00 2005-08-06 12:46:33 Outpatient [facility] [id number] [address] [place] [address]
--- NOTE | 2023-12-30 11:12 | OP ---
Date of Procedure: 12/30/2023 Surgeon: Rojas Esquivel MD Preoperative Diagnosis: Left hip severe arthritis. Postoperative Diagnosis: Left hip severe arthritis. Procedure: Left total hip arthroplasty using the Patti system. Estimated Blood Loss: 100 cc. Complications: There were no complications. Specimens: No pathology specimen sent other than the head. Indications For Operation: Mr. 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 He has had a previous right hip arthroplasty done by me using the same technique, which did excellently. At this time, he elects for a left total hip arthroplasty, as pain on this side is severe, limiting activities of daily living and ambulatory status. Risks, benefits, and alternatives of this procedure again discussed with him. He states he understands things as presented and wishes to proceed. Description Of Procedure: The patient was taken to the operating room. Spinal anesthesia was obtained by Anesthesia staff. Following this, he was placed in supine position. General anesthesia was easily obtained by Anesthesia staff. Following this, he was then rolled right side down with an axillary roll, and his left lower extremity was then prepped and draped in usual sterile fashion after being properly positioned using hip positioners. A standard posterolateral incision was taken down carefully through skin and soft tissues. Meticulous hemostasis being maintained using Bovie electrocautery. This led down to the fascia. A small stab incision was made in the fascia, and gluteal tendon was palpated assuring we were in the correct position. The fascial incision was then carried up until near the tip of the greater trochanter, where the gluteus ever muscles were encountered. It was then curved gently backward and spread with fingers. The Charnley was then used after palpation of sciatic nerve and some posterior fat as well as bursal tissue was removed. This allowed visualization of the external rotators, which were then taken down along with the capsule and tagged for later repair. The head itself was then exposed and dislocated. It was found to be highly diseased and a slightly shorter than standard neck cut was performed to allow for better visualization. The head was itself sized using ring gauges. After this, the soft tissues from the acetabulum were removed as well as the labrum. After this, the appropriate- sized reamer was used slightly deep in the acetabulum. This was then followed by sequential reaming to a size 59. He has a size 60 on the contralateral side and this appears to be appropriate sized and a size 60 cup was then placed without difficulty. Attention was then turned to the femur and a box office clerk used to lateralize followed by canal-finding reamer. It was then sequentially broached to a size 5 by nikki, appeared to be very tight and although he did have a 6 on the other side until the height was probably appropriate and decision was made to go ahead with the x-ray, which demonstrated it did appear to be appropriately sized and the cup itself appeared to be well seated. After this, the liner was placed in the cup and the final stem was then placed. It was then trialed and it appeared to be the appropriate length coming to full flexion without Shuck either laterally or inferiorly. He was stable to full flexion and adduction with internal rotation to at least 35-40 degrees. This was selected as the final implant. The wound was then copiously irrigated and the final ball was placed without difficulty. It was then relocated and found to be stable in the same parameters. It was again irrigated and the external rotators and capsule were repaired back to the greater trochanter via bone tunnels. It was again irrigated, and the fascia was closed in a watertight fashion using heavy Vicryl sutures, again irrigated and closed using Vicryl followed by so. The patient was then placed in Aquacel dressing, awakened, and taken to the recovery room in good condition. HARVEY Voice ID: [id number] Report ID: [id number] SOMMER
[2023-12-30 12:14] VITALS: O2SAT 94; BMI 33.2
--- NOTE | 2023-12-30 13:26 | P.CNS ---
Date of Consult: 12/30/23 Reason for Consult: Medical management Requesting Physician: Rojas Esquivel Chief Complaint: Left hip pain History of Present Illness: Patient with known history of avascular necrosis and pain in the left hip presented to the hospital for planned left total hip arthroplasty which was performed today, hospital service was consulted for medical management. Allergies sulfamethoxazole [From Bactrim] Allergy (Verified 12/30/23 07:00) Itching/Hives/Rash trimethoprim [From Bactrim] Allergy (Verified 12/30/23 07:00) Itching/Hives/Rash Home Medications: Meloxicam [Mobic*] 7.5 mg PO DAILY 09/25/23 Propranolol [Inderal LA*] 80 mg PO DAILY 09/25/23 - Past Medical/Surgical History Diabetic: No -: HTN -: Anxiety -: left shoulder -: right hip arthroplasty Psychosocial/ Personal History: Patient lives at home with family - Family History Mother Medical History: Hypertension Father Medical History: Hypertension - Social History Smoking Status: Former smoker Alcohol use: Yes CD- Drugs: No Caffeine use: No Place of Residence: Home Review of Systems 10-point ROS is otherwise unremarkable Musculoskeletal: Other (Left hip pain) Physical Examination Temp Pulse Resp BP Pulse Ox 97.0 F 71 18 127/78 98 12/30/23 12:00 12/30/23 12:00 12/30/23 12:00 12/30/23 12:00 12/30/23 12:00 General: Alert, In no apparent distress, Oriented x3 HEENT: Atraumatic, PERRLA, Mucous membr. moist/pink, EOMI Neck: Supple, 2+ carotid pulse no bruit, No LAD Respiratory: Clear to auscultation bilaterally, Normal air movement Cardiovascular: Regular rate/rhythm, Normal S1 S2 Gastrointestinal: Normal bowel sounds Musculoskeletal: No tenderness Integumentary: No rashes, Other (Dressing in place left hip) Neurological: Normal gait, Normal speech, Normal tone, Normal affect Laboratory Data (last 24 hrs) 12/30/23 10:08 Hgb 14.2 Hct 42.6 Conclusions/Impression: Assessment: Avascular necrosis/severe left hip arthritis s/p total left hip arthroplasty 12/29 Hypertension Anxiety Plan: Avascular necrosis/severe left hip arthritis s/p total left hip arthroplasty 12/29 Management per Ortho surgery with DVT PPx and pain medications PT consultation, plan for discharge home tomorrow with home health/PT Hypertension Anxiety Home medications continued, stable DVT PPX: Lovenox Code status: Full Critical Care: No Time Spent Managing Pts care (In Minutes): 35
[2023-12-30] MEDS: ALPRAZOLAM 0.25 MG TABLET PO SCH (13:55)
[2023-12-30] MEDS: CEFAZOLIN 1 GM in NA CHLORIDE 0.9% 50 ML IVPB SCH (16:36)
[2023-12-30 17:11] LABS: Hematocrit 41.7 % (39.6-49.0)
[2023-12-30] MEDS: HYDROCODONE/APAP 7.5/325 MG TAB PO PRN (18:11)
[2023-12-31 05:01] LABS: Hematocrit 39.9 % (39.6-49.0); Hemoglobin 13.6 g/dL (13.6-17.9)
[2023-12-31] MEDS: TIZANIDINE 4 MG TABLET PO ONE (08:05)
[2023-12-31] MEDS: PROPRANOLOL HCL 80 MG SA CAP PO SCH (08:05)
[2023-12-31] MEDS: MELOXICAM 7.5 MG TAB PO SCH (08:05)
[2023-12-31] MEDS: ENOXAPARIN 40 MG/0.4 ML SQ SCH (08:06)
[2023-12-31 12:59] VITALS: BP 141/73; TEMP 98.1
--- NOTE | 2023-12-31 14:01 | P.PN ---
Date of Service: 12/31/23 Subjective: Doing well no acute events overnight C/O left hip pain ROS: 10 point ROS as noted above, otherwise negative Physical exam GEN: Alert, oriented, NAD HEENT: Normal conjunctiva, sclera anicteric CV: Regular rate and rhythm, no edema Pulm: Nonlabored respirations on room air ABD: Soft, nontender, nondistended MSK: No joint tenderness Integumentary: No rashes, dressing in place to left hip CDI Neuro: Normal speech, normal affect Vitals reviewed Assessment: Avascular necrosis/severe left hip arthritis s/p total left hip arthroplasty 12/29 Hypertension Anxiety Plan: Avascular necrosis/severe left hip arthritis s/p total left hip arthroplasty 12/29 Management per Ortho surgery with DVT PPx and pain medications PT consultation, plan for discharge home today-medically stable for DC Hypertension Anxiety Home medications continued, stable VTE: lovenox Code: full Dispo: dispo home Time Spent Managing Pts Care (In Minutes): 35
== END 2023-12-31 14:49 | disposition home health service (06) ==
LOC: OR 06:01 → 2ND 10:22
PROVIDERS: ADMIT Orthopaedic Surgery; ATTEND Orthopaedic Surgery
PROC: 0SRB0JA Replacement of Left Hip Joint with Synthetic Substitute, Uncemented, Open Approach (ICD-10-PCS; principal; 2023-12-30 07:00)
DX: M16.12 Unilateral primary osteoarthritis, left hip (principal); I10 Essential (primary) hypertension; F41.9 Anxiety disorder, unspecified; Z88.2 Allergy status to sulfonamides; Z88.1 Allergy status to other antibiotic agents; Z87.891 Personal history of nicotine dependence
CPT/HCPCS: 85025; 80048; 36415 ×2; 85610; 88305; 88311; 85730; 85018 ×3; 85014 ×3; 81003; 73501; 97116; 97161; 97530; 27130; C1776; J3475; J2704; J2001 ×4; J1650; J2250 ×2; J3010; J0171; J7120 ×3; J0690 ×3